=== PATIENT | female | born 1980 | race Caucasian/White ===

== ENCOUNTER → 2017-10-26 09:22 | Outpatient (CLI) | payer OTHER, SELFPAY ==
[2017-10-26 11:45] LABS: Cholesterol 193 mg/dL (200); Glucose 79 mg/dL (74-106); High Density Lipoprotein 54 mg/dL; Triglycerides 174 mg/dL; Very Low Density Lipoprotein 35 mg/dL (5-40)
== END ==
PROVIDERS: Family Provider Family Medicine; PCP Family Medicine; Visit Provider Family Medicine
DX: Z13.1 Encounter for screening for diabetes mellitus (principal); Z13.220 Encounter for screening for lipoid disorders
CPT/HCPCS: 36415; 80061; 82947

== ENCOUNTER → 2018-10-15 16:25 | Outpatient (CLI) | payer OTHER, SELFPAY ==
[2018-10-15 17:35] LABS: Absolute Lymphocyte Count 1.88 X10^3/ul (0.83-4.51); Absolute Neutrophil Count 3.4 X10^3/uL (2.0-7.7); Basophil# 0.03 X10^3/uL; Basophil% 0.5 % (0-1); Eosinophil# 0.17 X10^3/uL; Eosinophils% 2.9 % (0-5); Hematocrit 39.8 % (37-47); Hemoglobin 12.7 g/dl (12.0-15.0); Lymphocyte # 1.88 X10^3/ul (4.0); Lymphocyte % 31.8 % (19-41); Mean Corp Hgb Conc 31.9 g/gl (32-36); Mean Corpuscular Hgb 26.4 pg (27.0-32.0); Mean Corpuscular Volume 82.7 fL (81-99); Monocyte# 0.39 X10^3/uL; Monocyte% 6.6 % (0-10); Neutrophil # 3.43 X10^3/uL (2.7-7.7); POSITIVE COUNT NO; POSITIVE DIFFERENTIAL NO; POSITIVE MORPHOLOGY NO; Platelet Count 271 K/mm3 (150-450); RBC Distribution Width CV 13.4 % (11.6-14.6); Red Blood Count 4.81 M/mm3 (4.2-5.4); White Blood Count 5.9 K/mm3 (4.4-11.0)
[2018-10-15 17:41] LABS: AST(SGOT) 11 U/L (15-37); Alanine Aminotransfer ALT/SGPT 19 U/L (13-56); Albumin, Serum 3.5 g/dL (3.2-5.0); Alkaline Phosphatase 75 U/L (45-117); Anion Gap 9 (5-15); BUN 9 mg/dL (7-18); BUN/Creat Ratio 12.3 RATIO (10-20); Calcium,Total 8.5 mg/dL (8.5-10.1); Chloride 106 mmol/L (98-107); Creatinine, Serum 0.73 mg/dL (0.55-1.02); EST Glomerular Filtration Rate 93 mL/min (>60); Est Glom Filt Rate - Afr Amer 113 mL/min (>60); Globulin 3.6 g/dL (2.2-4.2); Glucose 89 mg/dL (74-106); Magnesium 2.3 mg/dL (1.6-2.6); Potassium 4.2 mmol/L (3.5-5.1); Protein, Total 7.1 g/dL (6.4-8.2); Sodium Level 140 mmol/L (136-145); T4 Free Direct 1.08 ng/dL (0.76-1.46); Thyroid Stim Hormone (TSH) 2.18 uIU/mL (0.358-3.74)
== END ==
PROVIDERS: Family Provider Family Medicine; PCP Family Medicine; Visit Provider Family Medicine
DX: R55 Syncope and collapse (principal); F41.9 Anxiety disorder, unspecified; R00.2 Palpitations
CPT/HCPCS: 36415; 80053; 83735; 84439; 84443; 85025

== ENCOUNTER → 2020-09-30 | Outpatient (CLI) | payer OTHER, SELFPAY | END | disposition home or self-care (01) | LOC: LABSPEC 14:08 | PROVIDERS: PCP Family Medicine; Visit Provider Family Medicine | DX: Z20.828 Contact with and (suspected) exposure to other viral communicable diseases (principal); J34.89 Other specified disorders of nose and nasal sinuses | CPT/HCPCS: 87635; U0005; U0003 ==

== ENCOUNTER → 2021-03-26 11:08 | Outpatient (CLI) | payer OTHER, SELFPAY ==
--- NOTE | 2021-03-26 11:15 | RAD_ITS ---
INDICATION: CHEST/UPPER BACK PAIN EXAMINATION/TECHNIQUE: X-RAY - XR Chest 2 Views COMPARISON: None. FINDINGS: LINES/DEVICES: None. LUNGS: No consolidation, edema or effusion. No pneumothorax. MEDIASTINUM AND CARDIOVASCULAR STRUCTURES: Cardiac silhouette not enlarged. Central airways and mediastinal contour are unremarkable. BONES AND SOFT TISSUES: Unremarkable. RAD/Chest PA and Lateral IMPRESSION: No radiographic evidence of acute cardiopulmonary disease. Electronically Signed: Yefri Curran DO at 20:39 EDT Tel , Service support ,
== END ==
PROVIDERS: PCP Family Medicine; Referring Provider Family Medicine; Visit Provider Family Medicine
DX: M54.6 Pain in thoracic spine (principal); R10.9 Unspecified abdominal pain
CPT/HCPCS: 71046

== ENCOUNTER 2022-05-26 01:04 | Emergency (ER) | payer OTHER, SELFPAY ==
[2022-05-26 01:05] VITALS: BP 174/111; PULSE 125; RESP 19; TEMP 36.3; O2SAT 100; BMI 38.0
--- NOTE | 2022-05-26 01:10 | EKG12_ITS ---
Test Reason : DYSRHYTHMIA Blood Pressure : / mmHG Vent. Rate : 105 BPM Atrial Rate : 105 BPM P-R Int : 154 ms QRS Dur : 074 ms QT Int : 360 ms P-R-T Axes : 051 060 040 degrees QTc Int : 475 ms Sinus tachycardia Low voltage QRS Borderline ECG Confirmed by KAITLIN NARVAEZ, MARY ([id number]), rewrite editor SIN RUSSO ([id number]) on 05/30/2022 9:46:17 A M Referred By: ESSENCE Confirmed By:ISRAEL MADRIGAL MD
[2022-05-26] MEDS: 0.9% Normal Saline 1,000 ML 999 ML IV (01:29)
[2022-05-26 01:32] LABS: Absolute Lymphocyte Count 2.32 X10^3/uL (0.83-4.51); Absolute Neutrophil Count 4.7 X10^3/uL (2.0-7.7); Basophil# 0.04 X10^3/uL; Basophil% 0.5 % (0-1); Eosinophil# 0.02 X10^3/uL; Eosinophils% 0.3 % (0-5); Hematocrit 39.8 % (37-47); Hemoglobin 12.9 g/dL (12.0-15.0); Lymphocyte # 2.32 X10^3/ul (0.83-4.51); Mean Corp Hgb Conc 32.4 g/dL (32-36); Mean Corpuscular Hgb 26.1 pg (27.0-32.0); Mean Corpuscular Volume 80.4 fL (81-99); Mean Platelet Vol. 11.2 fl (6.2-12.0); Monocyte% 7.8 % (0-10); NRBC Flagged by Analyzer 0 % (0-5); Neutrophil # 4.74 X10^3/uL (2.7-7.7); Neutrophil % 61.1 % (47-70); Platelet Count 276 K/mm3 (150-450); RBC Distribution Width CV 13.5 % (11.6-14.6); RBC Distribution Width SD 39.2 fl (35.1-43.9); Red Blood Count 4.95 M/mm3 (4.2-5.4); White Blood Count 7.7 K/mm3 (4.4-11.0)
[2022-05-26 01:55] LABS: Anion Gap 6 (5-15); BUN 11 mg/dL (7-18); BUN/Creat Ratio 11.9 RATIO (10-20); Calcium,Total 9.1 mg/dL (8.5-10.1); Chloride 110 mmol/L (98-107); Creatinine, Serum 0.92 mg/dL (0.55-1.02); EST Glomerular Filtration Rate 70 mL/min (>60); Est Glom Filt Rate - Afr Amer 85 mL/min (>60); Estimated Creatinine Clearance 73.05 ml/min; Glucose 113 mg/dL (74-106); Magnesium 2.2 mg/dL (1.6-2.6); Potassium 3.7 mmol/L (3.5-5.1); Sodium Level 140 mmol/L (136-145); Thyroid Stim Hormone (TSH) 4.22 uIU/mL (0.358-3.74); Troponin-I HS 3 pg/mL (3.0-54.0)
--- NOTE | 2022-05-26 01:58 | EX.ED.DYSGE1 ---
HPI History of Present Illness Chief Complaint: Palpitations Narrative Narrative: Patient is a 42-year-old female with past medical history of acid reflux as well as anxiety. She states that this evening she was just lying in bed when she began to feel like her heart was racing. She denies any previous history of cardiac dysrhythmia. She denies any illicit drug use or excessive stimulant use. She denies any recent surgery travel or history of DVT/PE. She states that the fast heart rate was persisting and she was concerned that this could be related to a possible heart attack and secondary to this comes in for evaluation. [facility] Medical History GERD (gastroesophageal reflux disease) Panic Home Medications bupropion HCl 150 mg 24 hr tablet, extended release 150 mg PO DAILY 05/26/22 [History Last Taken Unknown] bupropion HCl 300 mg 24 hr tablet, extended release 300 mg PO DAILY 05/26/22 [History Last Taken Unknown] pantoprazole 40 mg tablet,delayed release 40 mg PO DAILY 05/26/22 [History Last Taken Unknown] Allergy/AdvReac Type Severity Reaction Status Date / Time omeprazole [From Prilosec] Allergy Rash Verified 05/26/22 01:07 Social History Smoking Status: Former smoker [facility] ED Constitutional Constitutional ED: Denies chills or fever(s) ENT ENT ED: Denies sore throat Cardiovascular Cardiovascular: Reports palpitations and racing heartbeat; Denies chest pain Respiratory/Chest Respiratory/Chest: Denies cough or dyspnea Gastrointestinal Gastrointestinal: Denies abdominal pain, diarrhea, nausea or vomiting Genitourinary Genitourinary ED: Denies dysuria Musculoskeletal Musculoskeletal: Denies back pain or myalgias Integumentary Denies rash Neurologic Neurologic: Denies headache(s) Psychiatric Psychiatric: Reports anxiety Hematologic/Lymphatic Hematologic/Lymphatic: Denies easy bleeding or easy bruising EXAM Physical Exam Const Vital Signs: 05/26/22 01:05 Temperature 97.3 F L Temperature Source Oral Pulse Rate 125 H Respiratory Rate 19 H Blood Pressure 174/111 H Blood Pressure Mean 132 Pulse Ox 100 Oxygen Delivery Method Room Air Positive well nourished, well developed and obese General Appearance ED: well developed Nutritional Appearance: obese HEENT Reports dry mucous membranes Mouth ED: Yes dry mucous membranes Mouth: dry mucous membranes Eyes PERRL and EOMs intact bilaterally Neck supple Neck Narrative: Thyroid is without nodule or goiter Chest Wall palpation of chest normal Resp normal respiratory effort and clear to auscultation bilaterally Cardio regular rhythm Rate: tachycardic and other Other Details: Slightly tachycardic rate with regular rhythm. Radial pulses are plus 2 out of 4 bilaterally are equal and symmetric GI normal to inspection, nondistended, normoactive bowel sounds, non-tender and non-distended GI Narrative: No voluntary guarding or rigidity no pulsatile mass Auscultation: normoactive bowel sounds Palpation: soft Extremity normal to inspection Extremity Narrative: No asymmetric edema no pitting edema negative Homans' sign bilaterally Neuro oriented x3 and CN's II-XII intact bilaterally Sensorium / Orientation: alert Psych Psych Narrative: Patient has a nervous/anxious affect Skin no rashes or lesions noted MDM MDM MDM Narrative Medical decision making narrative: Patient presented to the ER mildly hypertensive and tachycardic. She reported palpitations at home so an EKG was obtained which technically shows sinus tachycardia but no ectopic beats or dysrhythmia. Because of her complaint of palpitations a basic cardiac work-up was obtained. Labs showed no clinically significant findings and her troponin was normal at 3. She was kept on the cafeteria monitor and there was no cardiac dysrhythmia noted. Patient was hydrated and her symptoms improved. Therefore at this time with resolution of her palpitations and work-up showing no ectopy or cardiac dysrhythmia or signs of cardiac event she is otherwise safe for discharge Lab Data Attestation: I reviewed the patient's lab results. Labs: Laboratory Results - last 24 hr 05/26/22 05/26/22 01:20 01:20 WBC 7.7 RBC 4.95 Hgb 12.9 Hct 39.8 MCV 80.4 L MCH 26.1 L MCHC 32.4 RDW Std Deviation 39.2 RDW Coeff of Aracely 13.5 Plt Count 276 MPV 11.2 Immature Gran % (Auto) 0.300 Neut % (Auto) 61.1 Lymph % (Auto) 30.0 [place]irie % (Auto) 7.8 Eos % (Auto) 0.3 Baso % (Auto) 0.5 Absolute Neuts (auto) 4.7 Absolute Lymphs (auto) 2.32 Nucleated RBC % 0 Sodium 140 Potassium 3.7 Chloride 110 H Carbon Dioxide 24.0 Anion Gap 6 BUN 11 Creatinine 0.92 Estim Creat Clear Calc 73.05 Est GFR (MDRD) Af Amer 85 Est GFR (MDRD) Non-Af 70 BUN/Creatinine Ratio 11.9 Glucose 113 H Calcium 9.1 Magnesium 2.2 Troponin I High Sens 3 TSH 4.22 H Discharge Plan Triage Chief Complaint: Palpitations ED Provider: Nahum Mark Dx/Rx/DC Orders Clinical Impression: Palpitations, Anxiety Instructions: ED Palpitations Prescriptions: No Action pantoprazole 40 mg tablet,delayed release (DR/EC) 40 mg PO DAILY bupropion HCl 300 mg tablet extended release 24 hr 300 mg PO DAILY bupropion HCl 150 mg tablet extended release 24 hr 150 mg PO DAILY Primary Care Provider: Kaden Carter Referrals: Kaden Carter MD [Primary Care Provider] - Disposition Disposition: Home, Self Care
[2022-05-26 02:43] VITALS: BP 132/71; PULSE 78; RESP 18; O2SAT 100
== END 2022-05-26 03:09 | disposition home or self-care (01) ==
PROVIDERS: Emergency Provider Emergency Medicine; PCP Family Medicine; Visit Provider Emergency Medicine
DX: R00.2 Palpitations (principal); F41.9 Anxiety disorder, unspecified; E66.9 Obesity, unspecified; Z87.891 Personal history of nicotine dependence; Z79.899 Other long term (current) drug therapy
CPT/HCPCS: 80048; 83735; 84443; 84484; 85025; 93005; 96360; 99285; J7030; A4216

== ENCOUNTER → 2022-08-03 | Outpatient (CLI) | payer OTHER, SELFPAY ==
[2022-08-03 18:44] LABS: Free T3 2.8 pg/mL (2.18-3.98); T4 Free Direct 1.17 ng/dL (0.76-1.46); Thyroid Stim Hormone (TSH) 1.69 uIU/mL (0.358-3.74)
[2022-08-05 21:07] LABS: Thyroid Peroxidase AB 10 IU/mL (0-34)
[2022-08-06 20:14] LABS: Thyroglobulin Antibody < 1.0 IU/mL (0.0-0.9)
== END | disposition home or self-care (01) ==
LOC: MTLAB 16:05
PROVIDERS: PCP Family Medicine; Referring Provider Family Medicine; Visit Provider Family Medicine
DX: E03.9 Hypothyroidism, unspecified (principal)
CPT/HCPCS: 36415; 84439; 84443; 84481; 86376; 86800

== ENCOUNTER → 2022-12-29 | Outpatient (CLI) | payer OTHER, SELFPAY ==
[2022-12-29 18:27] LABS: Absolute Lymphocyte Count 1.58 X10^3/uL (0.83-4.51); Absolute Neutrophil Count 3.1 X10^3/uL (2.0-7.7); Basophil# 0.03 X10^3/uL; Basophil% 0.6 % (0-1); Eosinophil# 0.04 X10^3/uL; Eosinophils% 0.8 % (0-5); Hematocrit 38.1 % (37-47); Lymphocyte # 1.58 X10^3/ul (0.83-4.51); Lymphocyte % 30.7 % (19-41); Mean Corp Hgb Conc 31.5 g/dL (32-36); Mean Corpuscular Hgb 24.9 pg (27.0-32.0); Monocyte# 0.39 X10^3/uL; Monocyte% 7.6 % (0-10); NRBC Flagged by Analyzer 0 % (0-5); Neutrophil # 3.09 X10^3/uL (2.7-7.7); Neutrophil % 60.1 % (47-70); Platelet Count 312 K/mm3 (150-450); RBC Distribution Width SD 40.2 fl (35.1-43.9); Red Blood Count 4.82 M/mm3 (4.2-5.4); White Blood Count 5.1 K/mm3 (4.4-11.0)
[2022-12-29 18:56] LABS: Vitamin B12 269 pg/mL (211-911)
== END | disposition home or self-care (01) ==
LOC: BFHLAB 16:10
PROVIDERS: PCP Family Medicine; Referring Provider Family Medicine; Visit Provider Family Medicine
DX: R07.9 Chest pain, unspecified (principal)
CPT/HCPCS: 36415; 82607; 85025

== ENCOUNTER → 2023-01-23 | Outpatient (CLI) | payer OTHER, SELFPAY ==
--- NOTE | 2023-01-23 09:59 | STE_ITS ---
Reason For Study: CHEST PAIN, FATIGUE, BP ELEVATED Stress Results Protocol: Carmelo Protocol Maximum Predicted HR: 176 bpm Target HR: 150 bpm % Maximum Predicted HR: 96 % DurationHeart Rate Stage (mm:ss) (bpm) BP Comment BASELINE 81 139/86 STAGE 1 3:00 142 164/80 STAGE 2 3:00 169 192/70SOB NOTED STAGE 3 2:00 160 194/70INCREASED SOB RECOVERY 110 148/88COUGHING SPELL NOTED Stress Duration: 8:00 mm:ss Maximum Stress HR: 169 bpm Baseline Echocardiogram Findings The estimated ejection fraction is 60 %. Post exercise EF is 70%. Stress Echo Wall motion Data Resting WM Intermediate WM Stress WM Resting Wall Motion Wall Motion Stress No regional wall motion No regional wall motion abnormalities noted. abnormalities noted. EKG Data No significant ischemic changes. Symptoms with Stress The patient experinced no chest pain . ECHO/Stress Test Echo w/o Contrast Interpretation Summary The estimated ejection fraction is 60 %. Exercise echocardiogram is negative for exercise-induced chest pain or EKG or e chocardiographic changes of ischemia. Functional capacity is normal for age Ordering Physician: Nathalie Theodore Referring Physician: Nathalie Theodore Performed By: Jennifer Rothman RCS
== END | disposition home or self-care (01) ==
PROVIDERS: PCP Family Medicine; Referring Provider Family Medicine; Visit Provider Family Medicine
DX: R07.9 Chest pain, unspecified (principal)
CPT/HCPCS: 93017; 93350

== ENCOUNTER 2023-04-28 08:02 | Day surgery (SDC) | payer OTHER, SELFPAY ==
[2023-04-28 08:29] LABS: Internal QC Validated? YES +Cl - CLEAR BKGD; Pregnancy, Urine Negative Negative; Record Kit Lot#,Urine Preg HCG0000667200
[2023-04-28] MEDS: Lactated Ringers 1,000 ML 15 ML IV (08:30)
[2023-04-28 08:31] VITALS: BP 148/94; PULSE 96; RESP 17; TEMP 36.6; O2SAT 100; BMI 39.2
--- NOTE | 2023-04-28 08:51 | H&P.OPEN ---
HPI - General HPI Narrative BOSTON NETTLES, is a 43 F who presents for screening colonoscopy. The patient is never had screening colonoscopy in the past. She denies any abdominal pain or blood in the stool. She has no family history of colon cancer. [facility] Medical History Alcohol use Anemia Back pain Depression Former smoker Gastric reflux GERD (gastroesophageal reflux disease) History of edema History of IBS Normal stress echocardiogram Panic Shortness of breath on exertion Syncope Wears glasses Home Medications bupropion HCl 150 mg 24 hr tablet, extended release 150 mg PO DAILY 05/26/22 [History Last Taken Unknown] bupropion HCl 300 mg 24 hr tablet, extended release 300 mg PO DAILY 05/26/22 [History Last Taken Unknown] pantoprazole 40 mg tablet,delayed release 40 mg PO DAILY 05/26/22 [History Last Taken Unknown] fexofenadine 60 mg tablet (Yolanda Allergy) 60 mg PO DAILY 03/27/23 [History Last Taken Unknown] multivitamin 1 tab PO DAILY 04/25/23 [History Last Taken Unknown] Allergy/AdvReac Type Severity Reaction Status Date / Time omeprazole [From Prilosec] Allergy Rash Verified 04/28/23 08:09 Surgical History History of laparoscopic cholecystectomy Hx of dilation and curettage Social History household members: spouse current occupational status: employed Smoking Status: Former smoker Past Medical/Surgical History Planned Operation Planned Operative Procedure/s: COLONOSCOPY-OA Previous Hospitalizations/Surgeries HX Hospitalizations: No Any Problems With Anesthesia: Yes (HARD TIME WAKING) You/Your Family Experience Fever (Hyperthermia) With Anes: No Cholinesterase deficiency: No Cardiovascular Hx Chest Pain within Last 2 months: No Hx of Irregular Heartbeat and/or Afib: No Hx Heart Attack: No Hx Congestive Heart Failure: No Hx Hypertension: No Hx Pacemaker: No Respiratory Hx Chronic Obstructive Pulmonary Disease (COPD): No Hx Asthma: No Hx Emphysema: No Hx Sleep Apnea: No Hx Respiratory Tract Infection/Cold (presently): No Do You Snore Loudly (louder than talking or can be heard): No Do You Often Feel Tired/ Fatigued/ Sleepy Dring Daytime?: No Has Anyone Observed You Stop Breathing During Sleep?: No Result (for STOP score): Negative Smoking Status: Former smoker Gastrointestinal Hx Gastroesophageal Reflux: Yes Controlled With Meds: Yes Hx Ulcer: No Neurological Hx Seizures: No Hx Multiple Sclerosis: No Hx Parkinson's Disease: No Hx Head/Neck Injury: No Hx Headaches: No Hx Back Injury/Pain: Yes Does patient have nerve stimulator: No Blood Disorder Hx Anemia: No Reproduction : No Genitourinary Hx Dialysis: No Musculoskeletal Hx Arthritis: No Hx Rheumatoid Arthritis: No Endocrine Hx Diabetes: No Thyroid Disease: No Psycho/Social Hx Anxiety: Yes Hx Depression: Yes Miscellaneous Hx Cancer: No Recent Exposure to Contagious Disease: No Allergies omeprazole [From Prilosec] Allergy (Verified 04/28/23 08:09) Rash Discharge Is Pt Admitted From a Alf, or a Long Term: No After D/C, Where Do you Plan to Go: Return Home Vital Signs Vital Signs Vital Signs: 04/28/23 08:31 04/28/23 08:31 Temperature 97.8 F Temperature Source Temporal Pulse Rate 96 Respiratory Rate 17 Respiratory Pattern Normal Blood Pressure 148/94 H Blood Pressure Mean 112 Blood Pressure Source Monitor Blood Pressure Position Semi-Fowlers Blood Pressure Location Left Arm Pulse Ox 100 Oxygen Delivery Method Room Air Weight Weight: 243 lb 6.245 oz Body Mass Index (BMI) 39.2 Physical Exam Const alert and oriented x3 HEENT normocephalic Eyes PERRL Resp normal respiratory effort and normal air movement Cardio regular rate and regular rhythm GI soft to palpation, non-tender and non-distended Extremity normal to inspection Assessment & Plan Assessment/Plan (1) Encounter for screening for malignant neoplasm of colon: PLAN: I explained endoscopy in detail to the patient. I explained the risks including but not limited to stroke or heart attack with anesthesia, perforation of the GI tract, bleeding, infection. I explained that any of these could necessitate further emergency surgery. The patient understands and all questions were answered sufficiently. The patient wishes to proceed with procedure. Omar Nunez MD Pager: [facility] [address] [place] [address], [address] [place] [address] Office: Surgery Risks - Colonoscopy Risks Include but are not Limited To: Risks include but are not limited to: Bleeding, perforation requiring further surgery, inability to complete colonoscopy requiring barium enema.
[2023-04-28 09:23] VITALS: BP 119/83; BP 148/94; PULSE 72; RESP 18; TEMP 36.2; O2SAT 93
[2023-04-28 09:25] VITALS: BP 113/75; BP 148/94; PULSE 58; RESP 18; O2SAT 99
--- NOTE | 2023-04-28 09:26 | OP.COLON_ITS ---
Patient Name: Cele Paz Procedure Date: 04/28/2023 8:55 AM Date of : 1980 Age: 43 Procedure: Colonoscopy Indications: Screening for colorectal malignant neoplasm Providers: Omar Nunez MD Referring MD: Nathalie Theodore Medicines: Monitored Anesthesia Care Patient Profile: This is a 43 year old female. Refer to note in patient chart for documentation of history and physical. Last Colonoscopy: none. The patient's first colonoscopy is today. Complications: No immediate complications. Procedure: Pre-Anesthesia Assessment: - Prior to the procedure, a History and Physical was performed, and patient medications and allergies were reviewed. The patient's tolerance of previous anesthesia was also reviewed. The risks and benefits of the procedure and the sedation options and risks were discussed with the patient. All questions were answered, and informed consent was obtained. Prior Anticoagulants: The patient has taken no anticoagulant or antiplatelet agents. ASA Grade Assessment: II - A patient with mild systemic disease. After reviewing the risks and benefits, the patient was deemed in satisfactory condition to undergo the procedure. After I obtained informed consent, the scope was passed under direct vision. Throughout the procedure, the patient's blood pressure, pulse, and oxygen saturations were monitored continuously. The Colonoscope was introduced through the anus and advanced to the cecum, identified by appendiceal orifice and ileocecal valve. The colonoscopy was performed without difficulty. The patient tolerated the procedure well. The quality of the bowel preparation was good. The ileocecal valve, appendiceal orifice, and rectum were photographed. Scope In: 9:03:10 AM Scope Withdrawal Time 0 hours 6 minutes 0 seconds Scope Out: 9:17:45 AM Total Procedure Duration Time 0 hours 14 minutes 35 seconds Findings: The entire examined colon appeared normal on direct and retroflexion views. Impression: - The entire examined colon is normal on direct and retroflexion views. - No specimens collected. Recommendation: - Discharge patient to home. - Resume previous diet. - Continue present medications. - Repeat colonoscopy in 10 years for screening purposes. Procedure Code(s): --- Professional --- 20077, Colonoscopy, flexible; diagnostic, including collection of specimen(s) by brushing or washing, when performed (separate procedure) Diagnosis Code(s): --- Professional --- Z12.11, Encounter for screening for malignant neoplasm of colon CPT copyright 2021 [employer]. All rights reserved. The codes documented in this report are preliminary and upon corporate concierge review may be revised to meet current compliance requirements. Omar Nunez MD 04/28/2023 9:25:36 AM This report has been signed electronically. Number of Addenda: 0 Note Initiated On: 04/28/2023 8:55 AM
--- NOTE | 2023-04-28 09:26 | OP.CCLET_ITS ---
04/28/2023 Nathalie Theodore [facility] [address] [place] [address] Re : Colonoscopy procedure for Cele Paz Dear Dr. Theodore This procedure was performed on Friday, April 28, 2023. My impressions and recommendations are as follows: Impressions : - The entire examined colon is normal on direct and retroflexion views. - No specimens collected. Recommendations : - Discharge patient to home. - Resume previous diet. - Continue present medications. - Repeat colonoscopy in 10 years for screening purposes. My findings are described in the full procedure note, which is enclosed. If I can be of further assistance, please feel free to contact me at Doctor phone number(s): , Work: . Sincerely, Omar Nunez MD 04/28/2023 9:25:36 AM This report has been signed electronically.
[2023-04-28 09:30] VITALS: BP 116/78; BP 148/94; PULSE 62; RESP 18; O2SAT 58
[2023-04-28 09:36] VITALS: BP 122/82; BP 148/94; PULSE 71; RESP 18; TEMP 36.2; O2SAT 100
[2023-04-28 09:48] VITALS: BP 148/94
== END 2023-04-28 10:09 | disposition home or self-care (01) ==
LOC: EN 08:06 → AC 08:08
PROVIDERS: Anesthesiology; PCP Family Medicine; Referring Provider Family Medicine; Visit Provider Surgery
PROC: 0DJD8ZZ Inspection of Lower Intestinal Tract, Via Natural or Artificial Opening Endoscopic (ICD-10-PCS; CPT 45378; principal; 2023-04-28 08:55)
DX: Z12.11 Encounter for screening for malignant neoplasm of colon (principal); Z87.891 Personal history of nicotine dependence; Z79.899 Other long term (current) drug therapy
CPT/HCPCS: 45378; 81025; J7120; J2405

== ENCOUNTER → 2023-05-18 | Outpatient (CLI) | payer OTHER, SELFPAY ==
[2023-05-18 17:47] LABS: Absolute Lymphocyte Count 1.73 X10^3/uL (0.83-4.51); Basophil# 0.04 X10^3/uL; Basophil% 0.6 % (0-1); Eosinophil# 0.07 X10^3/uL; Eosinophils% 1.1 % (0-5); Hematocrit 41.7 % (37-47); Hemoglobin 13.1 g/dL (12.0-15.0); Lymphocyte # 1.73 X10^3/ul (0.83-4.51); Lymphocyte % 26.6 % (19-41); Mean Corp Hgb Conc 31.4 g/dL (32-36); Mean Corpuscular Hgb 26.6 pg (27.0-32.0); Mean Corpuscular Volume 84.6 fL (81-99); Monocyte# 0.63 X10^3/uL; Monocyte% 9.7 % (0-10); NRBC Flagged by Analyzer 0 % (0-5); Neutrophil # 4.02 X10^3/uL (2.7-7.7); Neutrophil % 61.7 % (47-70); Platelet Count 270 K/mm3 (150-450); RBC Distribution Width CV 13.9 % (11.6-14.6); RBC Distribution Width SD 42.9 fl (35.1-43.9); Red Blood Count 4.93 M/mm3 (4.2-5.4); White Blood Count 6.5 K/mm3 (4.4-11.0)
[2023-05-18 18:12] LABS: Vitamin B12 398 pg/mL (211-911)
[2023-05-18 18:24] LABS: Ferritin 19 ng/mL (8-252)
== END | disposition home or self-care (01) ==
LOC: MTLAB 16:47
PROVIDERS: PCP Family Medicine; Referring Provider Family Medicine; Visit Provider Family Medicine
DX: D64.9 Anemia, unspecified (principal); E53.8 Deficiency of other specified B group vitamins
CPT/HCPCS: 36415; 82607; 82728; 85025

== ENCOUNTER → 2023-06-23 | Outpatient (CLI) | payer OTHER, SELFPAY ==
--- NOTE | 2023-06-23 08:17 | RAD_ITS ---
STUDY: AIR CONTRAST ESOPHAGRAM AND UPPER GI SERIES REASON FOR EXAM: Female, 43 years old. EPIGASTRIC PAIN FLUOROSCOPY TIME (if supplied): (1 minute and 16 seconds) minutes/seconds. 24 images were obtained. TECHNIQUE: SINGLE CONTRAST AND AIR CONTRAST FLUOROSCOPIC IMAGES. COMPARISON: None. FINDINGS: The cervical esophagus demonstrates normal motility without aspiration. There is no stricture or extrinsic mass effect. No intraluminal polypoid mass is identified. The thoracic esophagus distends well without stricture or mucosal fold thickening. No mucosal ulcerations are identified. There is no extrinsic mass effect. There are no diverticula. No hiatal hernia or gastroesophageal reflux was identified. The patient ingested a 12 mm tablet and barium without difficulty. The stomach distends well without mucosal fold thickening or mucosal ulceration. There is no intraluminal mass. The duodenal bulb is freely distensible without deformity or ulceration. The duodenal sweep is normal in position and caliber. RAD/Upper GI w/BA Swallow IMPRESSION: Normal air-contrast upper GI series. Electronically Signed: Ernie Sosa MD at 14:50 EST ,
== END | disposition home or self-care (01) ==
PROVIDERS: PCP Family Medicine; Referring Provider Family Medicine; Visit Provider Family Medicine
DX: R10.13 Epigastric pain (principal)
CPT/HCPCS: 74246

== ENCOUNTER 2023-09-10 10:20 | Emergency (ER) | payer OTHER, SELFPAY ==
[2023-09-10 10:21] VITALS: BP 158/98; PULSE 88; RESP 18; TEMP 36.2; O2SAT 100; BMI 40.4
--- NOTE | 2023-09-10 10:32 | VDLE_ITS ---
Reason For Study: LLE Pain RIGHT LEFT CFV is compressible, spontaneous, phasic, GSV is normal. competent and demonstrates normal CFV is compressible, spontaneous, phasic, augmentation. competent, and demonstrates normal Procedure augmentation. This is a venous duplex using B-mode, color FV is compressible, spontaneous, phasic, flow and spectral Doppler. competent and demonstrates normal Exam performed portable in ED. augmentation. The exam was diagnostic. POP V is compressible, spontaneous, phasic, A preliminary report was called and/or faxed competent and demonstrates normal to ED RN Kelli. augmentation. T/P Trunk is compressible. PTV is compressible. LT PerV is compressible. VL/Venous Duplex US, Unilateral Interpretation Summary There is no evidence of left lower extremity deep vein thrombosis. Left great s aphenous vein appears patent and compressible segmentally. Normal flow patterns right common femoral vein Ordering Physician: Adrian Vanegas Performed By: Farhad Burton RVT
--- NOTE | 2023-09-10 10:33 | RAD_ITS ---
EXAM: XR CHEST, 2 VIEWS CLINICAL INDICATION: pain TECHNIQUE: Frontal and lateral views of the chest. COMPARISON: 03/26/2021. FINDINGS: LUNGS AND PLEURAL SPACES: Unremarkable. No consolidation or edema. No pneumothorax. No effusion. HEART: Unremarkable. Cardiac silhouette not enlarged. MEDIASTINUM: Central airways and mediastinal contour are unremarkable. BONES/JOINTS: Unremarkable. No acute fracture. SOFT TISSUES: Unremarkable. RAD/Chest PA and Lateral IMPRESSION: No radiographic evidence of acute cardiopulmonary disease and no significant interval change when compared to 03/26/2021. Electronically Signed: Ayo Dickey MD at 12:25 EST ,
--- NOTE | 2023-09-10 10:34 | EDS_ITS ---
HPI History of Present Illness Chief Complaint: Lower Extremity Injury Informant: patient Narrative Narrative: Patient presents with some left leg pain. Patient states that yesterday she had some discomfort behind her left knee. No known injury. That is gone today. But now she has a sore spot in the distal medial left thigh. She states sometimes she feels may be a bump in the area. Again no injury. She has never had this before. No numbness tingling weakness or back pain. No bowel or bladder dysfunction. No fevers or chills. On review of systems I do find out that she has had some episodes which she describes as collarbone plain and chest pain off and on for some months. She evidently had some outpatient health screening with some blood work a possible EKG and they also did ultrasounds of her neck and abdomen that showed normal vascular stru ctures. Patient has no travel surgery immobilization personal or family history of DVT or PE. No recent splinting. No hormonal therapy. She had a father that had an SD at about 57 or 58. She is not diabetic hypertensive or smoker (she quit long ago). She does have some obesity. [facility] Medical History Alcohol use Anemia Back pain Depression Former smoker Gastric reflux GERD (gastroesophageal reflux disease) History of edema History of IBS Normal stress echocardiogram Panic Shortness of breath on exertion Syncope Wears glasses Home Medications bupropion HCl 150 mg 24 hr tablet, extended release 150 mg PO DAILY 05/26/22 [History Last Taken Unknown] bupropion HCl 300 mg 24 hr tablet, extended release 300 mg PO DAILY 05/26/22 [History Last Taken Unknown] pantoprazole 40 mg tablet,delayed release 40 mg PO DAILY 05/26/22 [History Last Taken Unknown] fexofenadine 60 mg tablet (Yolanda Allergy) 60 mg PO DAILY 03/27/23 [History Last Taken Unknown] multivitamin 1 tab PO DAILY 04/25/23 [History Last Taken Unknown] Allergy/AdvReac Type Severity Reaction Status Date / Time omeprazole [From Prilosec] Allergy Rash Verified 09/10/23 10:21 Surgical History History of laparoscopic cholecystectomy Hx of dilation and curettage Social History household members: spouse current occupational status: employed Smoking Status: Former smoker ROS ROS ED ROS Narrative A complete review of systems was performed and is negative except as documented in the history of present illness. Some specific details below. Constitutional: No recent fevers or chills. EYE: No discharge, visual complaints, or pain. ENT: No difficulty swallowing. No swelling. No pain. No reflux symptoms. CV: See history of present illness. No symptoms now or recently. Respiratory: No dyspnea or coughing. GI: No abdominal pain. No nausea vomiting diarrhea. No blood in stool. : No frequency dysuria or hematuria. Musculoskeletal: No recent trauma. See history of present illness. Skin: No rash. Nondiaphoretic. Neuro: No weakness or numbness. Endocrine: No polyuria or polydipsia. EXAM Physical Exam Narrative Exam Narrative: CONSTITUTIONAL: Patient is nontoxic in appearance. The patient looks comfortable. Work of breathing looks normal. HEENT: No notable trauma. Mucous membranes moist. No sinus tenderness. No indication of pain with swallowing. EYES: No conjunctival injection. No proptosis. NECK:No JVD. No stridor. CARDIOVASCULAR: Regular rate. Not tachycardic. Regular rhythm. No notable murmur. No JVD. RESPIRATORY: No respiratory distress. Breathing is unlabored. No wheezes. No rhonchi. No rales. No pain with a deep breath. No chest wall tenderness. Saturations are normal at 100% on room air showing no hypoxia. No tachypnea. GASTROINTESTINAL: Not distended. Bowel sounds are normal. No tenderness. No guarding. No rebound. No palpable mass. No bruit is heard. GENITOURINARY: No tenderness over the bladder. No CVA tenderness. MUSCULOSKELETAL: Atraumatic. No peripheral edema. No cord. She does have a little tenderness at the distal medial thigh and an area that would approximate the femoral artery and vein. But I do not feel a definite lump in this area. There are no skin color changes. Peripheral pulses and color is normal. NEUROLOGICAL: Patient is alert and appropriate. No focal deficit noted. SKIN: No noted rashes. No diaphoresis. PSYCHIATRIC: Patient is calm. Mood is appropriate. Const Vital Signs: 09/10/23 10:21 09/10/23 11:20 Temperature 97.1 F L Temperature Source Temporal Pulse Rate 88 80 Respiratory Rate 18 16 Blood Pressure 158/98 H 156/84 H Blood Pressure Mean 118 108 Pulse Ox 100 99 Oxygen Delivery Method Room Air MDM MDM MDM Narrative Medical decision making narrative: Although patient's primary complaint today is the left leg pain, she does report intermittent chest pain for some months. So this will also be evaluated today as I feel it is part of her complaint. But patient is PERC negative. Patient's CBC is normal including white count hemoglobin and platelets. Patient's electrolytes show no marked abnormalities. Minimal elevation of chloride at 111. Glucose is normal. Patient's troponin is quite low and normal at 3. My independent interpretation of the patient's two-view chest x-ray shows no sign of acute process. No sign of pneumothorax. Cardiac silhouette looks normal. Lung núñez no sign of infiltrate. Ultrasound results were called and is negative. I explained the results to the patient, follow-up and reasons to return. Lab Data Attestation: I reviewed the patient's lab results. Labs: Laboratory Results - last 24 hr 09/10/23 10:50 WBC 5.7 RBC 5.11 Hgb 13.9 Hct 43.2 MCV 84.5 MCH 27.2 MCHC 32.2 RDW Std Deviation 39.3 RDW Coeff of Aracely 12.8 Plt Count 279 MPV 10.4 Immature Gran % (Auto) 0.300 Neut % (Auto) 60.7 Lymph % (Auto) 28.0 Harding % (Auto) 9.1 Eos % (Auto) 1.2 Baso % (Auto) 0.7 Absolute Neuts (auto) 3.5 Absolute Lymphs (auto) 1.60 Nucleated RBC % 0 Sodium 140 Potassium 3.9 Chloride 111 H Carbon Dioxide 26.0 Anion Gap 3 L BUN 7 Creatinine 0.87 Estim Creat Clear Calc 104.50 Est GFR (MDRD) Af Amer 90 Est GFR (MDRD) Non-Af 75 BUN/Creatinine Ratio 8.0 L Glucose 99 Calcium 9.3 Troponin I High Sens 3 EKG Initial EKG: Comments: My independent interpretation of the patient's EKG shows a normal sinus rhythm with rate at 81. No ventricular ectopy but there is some baseline variation and interference. No acute ST elevation or depression. VA interval, QRS duration and QTc are normal. Discharge Plan Triage Chief Complaint: Lower Extremity Injury ED Provider: Adrian Vanegas Dx/Rx/DC Orders Clinical Impression: Left thigh pain, History of chest pain Instructions: ED Pain, Acute, Uncertain Cause Prescriptions: No Action fexofenadine [Yolanda Allergy] 60 mg tablet 60 mg PO DAILY pantoprazole 40 mg tablet,delayed release (DR/EC) 40 mg PO DAILY bupropion HCl 300 mg tablet extended release 24 hr 300 mg PO DAILY bupropion HCl 150 mg tablet extended release 24 hr 150 mg PO DAILY multivitamin Tablet 1 tab PO DAILY Primary Care Provider: Nathalie Theodore Referrals: Nathalie Theodore MD [Primary Care Provider] - 3-5 Days Disposition Disposition: Home, Self Care
--- OUTSIDE RECORDS SUMMARY | 2023-09-10 10:41 | XMS RPT_ITS | CCD ---
Author Name Unknown Address [address] [place] [address] Organization [facility] Care Team Providers Care Middleware Developer Name Role Phone Ewelina NARVAEZ, Nathalie Lira Primary Care Provider MARYANNE BISHOP Referring Unavailable AGAPITO ZAVALA Primary Care Unavailable MARYANNE BISHOP Attending Unavailable AGAPITO ZAVALA Referring Unavailable NATHALIE PARISI Primary Care Unavailable Allergies Allergy Classification Reported Allergen(s) Allergy Type Date of Onset Reaction(s) Facility (3 sources) Esomeprazole; Translations: [ESOMEPRAZOLE MAGNESIUM] Drug Allergy 9 Rash [facility] Work Phone: (3 sources) Omeprazole; Translations: [OMEPRAZOLE] Drug Allergy 5 Hives [facility] Work Phone: (2 sources) environmental [Other] Propensity to adverse reactions 7 [facility] (1 source) OTHER; Translations: [OTHER] Propensity to adverse reactions (disorder) 7 [facility]ository Medications Completed/Discontinued Medications Medication Drug Class(es) Dates Sig (Normalized) Sig (Original) betamethasone 0.5 mg/ml topical cream (2 sources) Corticosteroid Start: 02-09-2021 betamethasone dipropionate (DIPROSONE) 0.05 % cream USE 1 APPLICATION TOPICALLY TO AFFECTED AREA 2 TIMES PER DAY FOR PSORIASIS 0 02/09/2021 Active Problems Active Problems Problem Classification Problem Date Documented Da te Episodic/Chronic Anxiety disorders (2 sources) Panic disorder without agoraphobia; Translations: [Panic disorder [episodic paroxysmal anxiety]] 03-16-2010 Chronic Disorders of lipid metabolism (2 sources) Mixed hyperlipidemia; Translations: [Mixed hyperlipidemia] Onset: 8 03-16-2010 Chronic Esophageal disorders (2 sources) Gastroesophageal reflux disease; Translations: [Gastro-esophageal reflux disease without esophagitis] 03-16-2010 Chronic Menstrual disorders (2 sources) Dysmenorrhea; Translations: [Dysmenorrhea, unspecified] Onset: 0 03-16-2010 Chronic Mood disorders (2 sources) Major depression, single episode; Translations: [Major depressive disorder, single episode, unspecified] 03-16-2010 Chronic Other female genital disorders (1 source) Vaginal discharge; Translations: [Other specified noninflammatory disorders of vagina] Episodic Other female genital disorders (1 source) Other specified noninflammatory disorders of vagina; Translations: [Vaginal discharge] Onset: 3 Episodic Other gastrointestinal disorders (2 sources) Irritable bowel syndrome; Translations: [Irritable bowel syndrome without diarrhea] 03-16-2010 Chronic Other nutritional; endocrine; and metabolic disorders (3 sources) Obesity; Translations: [Obesity, unspecified] Chronic Other nutritional; endocrine; and metabolic disorders (1 source) Obesity, unspecified; Translations: [Obesity, unspecified classification, unspecified obesity type, unspecified whether serious comorbidity present] Onset: 0 Chronic Other screening for suspected conditions (not mental disorders or infectious disease) (4 sources) Patient encounter status; Translations: [Encounter for screening mammogram for malignant neoplasm of breast] Onset: 3 Episodic Past or Other Problems Problem Classification Problem Date Documented Date Episodic/Chronic Contraceptive and procreative management (2 sources) Oral contraception; Translations: [Encounter for surveillance of contraceptive pills] Onset: 02-02-2010 03-16-2010 Episodic Other connective tissue disease (2 sources) Muscle pain; Translations: [Myalgia and myositis, unspecified] Onset: 06-18-2012 06-18-2012 Episodic Spondylosis; intervertebral disc disorders; other back problems (2 sources) Sciatica; Translations: [Sciatica, unspecified side] Onset: 06-18-2012 06-18-2012 Episodic Results Test Name Value Interpretation Reference Range Facil ity Vital Signs Date Time Vital Sign Value Performing Clinician Brandee peña 11-15-2022 09:0400 Body height 167.6 cm Maryanne Bishop APRN.CNP Work Phone: [facility] 11-15-2022 09:03-0400 Body weight 109.77 kg Maryanne Bishop APRN.CNP Work Phone: [facility] 11-15-2022 09:03-0400 Diastolic blood pressure 92 mm[Hg] Maryanne Bishop APRN.CNP Work Phone: [facility] 11-15-2022 09:03-0400 Systolic blood pressure 122 mm[Hg] Maryanne Bishop APRN.CNP Work Phone: [facility] Encounters Encounter Date Encounter Type Care Provider Facility Start: 11-15-2022 End: 11-16-2022 ambulatory MARYANNE BISHOP Facility:[facility] Start: 11-15-2022 Encounter for gynecological examination (general) (routine) with abnormal findings MARYANNE BISHOP [facility] Start: 11-15-2022 End: 11-15-2022 Patient encounter procedure Maryanne Bishop APRN.CNP Work Phone: OB/Gynecology Procedures Date Procedure Procedure Detail Performing Clinician Start: 11-15-2022 Screening mammograph y bi 2-view breast inc cad Maryanne Bishop APRN.CNP Work Phone: Start: 03-26-2021 Mammography Maryanne lira APRN.CNP Work Phone: Start: 03-18-2010 Lipid 1996 panel - S [place] or Plasma Screen Wstr Plan of Treatment Date Care Activity Detail Author Start: 11-04-2032 Urine microalbumin profile DTaP,Tdap,Td Vaccine (4 - Td or Tdap) [facility] Start: 03-20-2025 HPV TESTING HPV TESTING [facility] Start: 03-20-2025 PAP TESTING PAP TESTING [facility] Start: 11-16-2023 Mammography Mammogram Screening [facility] Start: 2023 Cologuard (FIT-DNA) Cologuard (FIT-DNA) [facility] Start: 2023 Colonoscopy Colonoscopy [facility] Start: 2023 Colorectal Cancer Screening Colorectal Cancer Screening [facility] Start: [address] Colonography [facility] Start: 2023 Diabetes Screening Diabetes Screening [facility] Start: 2023 Fecal Occult Blood Fecal Occult Blood [facility] Start: 2023 Lipid 1996 panel - Serum or Plasma Lipid Screening [facility] Start: 2023 Sigmoidoscopy Sigmoidoscopy [facility] Start: 04-14-2023 Covid-19 Vaccine () Covid-19 Vaccine () [facility] Start: 04-14-2023 Influenza vaccination Influenza Vaccine (#1) [facility] Start: 04-02-2022 Urine microalbumin profile DTAP,TDAP,TD (3 - Td or Tdap) [facility] Start: 03-26-2022 Mammography MAMMOGRAM [facility] Start: 1996 HEPATITIS C SCREENING HEPATITIS C SCREENING [facility] Start: 1996 HIV SCREENING HIV SCREENING [facility] Start: 1978 HEPATITIS B (1 of 3 - 3-dose series) HEPATITIS B (1 of 3 - 3-dose series) [facility] Start: 1978 Hepatitis B Vaccine (1 of 3 - 3-dose series) Hepatitis B Vaccine (1 of 3 - 3-dose series) [facility] BACTERIAL VAGINOSIS AMPLIFICATION BACTERIAL VAGINOSIS AMPLIFICATION Lab Routine Vaginal discharge 11/15/2022 9:57 AM EDT [facility] Work Phone: MAREN / TRICHOMONA S AMPLIFICATION MAREN / TRICHOMONAS AMPLIFICATION Microbiology Routine Vaginal discharge 11/15/2022 9:57 AM EDT [facility] Work Phone: End: 12-15-2023 GERRI SCREENING GERRI SCREENING Radiology Routine Encounter for screening mammogram for breast cancer 1 Occurrences starting 11/15/2022 until 12/15/2023 [facility] Work Phone: Immunizations Immunization Date Immunization Notes Care Provider Berta varela 05-17-2022 influenza virus vaccine, unspecified formulation Screen Wstr [facility] 06-23-2012 influenza virus vaccine, unspecified formulation Maryanne Bishop APRN.ASSEMBLY MACHINE OFFBEARER Work Phone: [facility] 04-02-2012 tetanus toxoid, redu jane diphtheria toxoid, and acellular pertussis vaccine, adsorbed Maryanne Bishop APRN.ASSEMBLY MACHINE OFFBEARER Work Phone: [facility] Work Phone: 08-11-2010 influenza virus vaccine, unspecified formulation Maryanne Bishop APRN.ASSEMBLY MACHINE OFFBEARER Work Phone: [facility] Work Phone: 06-26-2008 influenza virus vaccine, unspecified formulation Maryanne Bishop APRN.ASSEMBLY MACHINE OFFBEARER Work Phone: [facility] Work Phone: 07-30-2005 influenza virus vaccine, whole virus Maryanne Bishop APRN.ASSEMBLY MACHINE OFFBEARER Work Phone: [facility] Work Phone: 07-20-2001 diphtheria and tetan us toxoids, adsorbed for pediatric use Maryanne Bishop APRN.ASSEMBLY MACHINE OFFBEARER Work Phone: [facility] Work Phone: Payers Date Payer Category Payer Unknown [id number] 2022 Unknown [id number] Social History Date Type Detail Facility Start: 12-04-2010 [facility] Work Phone: End: 10-12-2000 History of tobacco use Current smoker [facility] Work Phone: End: 10-12-2000 History of tobacco use Cigarette Smoker [facility] Work Phone: Start: 12-04-2010 End: 11-15-2022 Cigarettes smoked current (pack per day) - Reported 0.5 [facility] Start: 12-04-2010 Tobacco use and exposure Smoke less tobacco non-user [facility] Work Phone: Start: 11-15-2022 Alcohol intake Current drinke r of alcohol (finding) [facility] Start: 03-20-2020 Alcohol Comment Rarely [facility] Start: 1980 Sex Assigned At Female [facility] Start: 11-15-2022 Tobacco use panel [facility] National Score (1-10 0), lower number is lower risk 51 [facility] Start: 12-25-2020 Gender identity Identifies as female gender (finding) [facility] Start: 12-25-2020 Sexual orientation Choose not to dis close [facility] Clinical Notes 03-16-2010 to 11-15-2022 Ladonna Espino RT(R) - 11/15/2022 10:10 AM Jayda Bishop APRN.CNP - 11/15/2022 8:59 AM EDT Note Date & Type Note Facility 11-15-2022 Note HNO ID: [id number] Author: RT Addison(R) Service: ? Author Type: Technologist Type: Progress Notes Filed: 11/15/2022 9:50 AM Note Text: Radiology Service Progress Note PATIENT NAME: Cele Nettles DATE OF SERVICE: November 15, 2022 TIME: 9:39 AM PATIENT IDENTITY VERIFICATION COMPLETED USING TWO (2) IDENTIFIERS: Name and Date of confirmed by patient verbally. FALL SCREENING: Has the patient had 2 falls in the last year or 1 fall with injury or currently using an Ambulatory Assistive Device (Walker, Cane, Wheelchair, Crutches, etc.)? No PATIENT GENDER DATA: Female. status: : No status: NO. PATIENT RELEVANT IMPLANT DATA REVIEWED: Not Applicable RADIOLOGY DEPARTMENT: Mammography PERIPHERAL IV DATA: Not applicable SIGNED BY: RT Addison(R) November 15, 2022 9:39 AM [facility] 11-15-2022 Note HNO ID: [id number] Author: Maryanne Bishop APRN.ASSEMBLY MACHINE OFFBEARER Service: ? Author Type: Nurse Practitioner Type: Progress Notes Filed: 11/15/2022 9:42 AM Note Text: Supervisor Pipe Finishing offered: Patient declines. Cele is a 42 year old who presents for an annual gynecologic exam without complaints. Taking the week off of work to take daughter on college visits - would like to work in [employer]. Also has 15 yo child. Menses: cycles every 28-29 days and 5-7 days of flow. Contraception: vasectomy HPV vaccine: No Last Pap: 2019 normal HPV: negative History of abnormal pap: No Last mammogram: 2020 normal Sexually active: Yes Patient concerns for STD exposure: No. Time with current partner: 27 years Pain with intercourse: No Postcoital bleeding: No Documentation from previous visit of 03/23/2021 was copied and pasted, documentation has been reviewed and edited as necessary for today's visit. 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 +/- Panic disorder without agoraphobia early +/- first treated in 2004 +/- PAST SURGICAL HISTORY Procedure Laterality Date DANDC, DIAG AND/OR THERAPEUTIC Dilation AND curettage LAPAROSCOPIC CHOLEYCYSTECTOMY 09/24/2010 Cholecystectomy, lap PAST SURGICAL HISTORY OF 02/22 AND 03/25 moles removed to L arm and back of neck FAMILY HISTORY Problem Relation Age of Onset Heart Mother murmur Hypertension Mother middle age Heart Attack Father 06/2018 No Known Problems Sister No Known Problems Brother No Known Problems Brother Heart Maternal Grandmother of [place] Diabetes Maternal Grandmother Stroke Maternal Grandfather Cancer Paternal Grandmother ADD/ADHD Daughter ADD/ADHD Son Heart Sister murmur Diabetes Sister Type 1 Hypertension Brother younger brother; morbidly obese Heart Brother CHF Hypertension Maternal Aunt Hypertension Maternal Aunt other (Pancreatic CA) Other great grandmother Heart Paternal Grandfather SOCIAL HISTORY Social History Tobacco Use Smoking status: Former Packs/day: 0.50 Years: 6.00 Pack years: 3.00 Types: Cigarettes Quit date: 10/12/2000 Years since quittin.1 Smokeless tobacco: Never Vaping Use Vaping Use: Never used Substance Use Topics Alcohol use: Yes Comment: Rarely Drug use: No REVIEW OF SYSTEMS Abdomen: No abdominal pain, nausea, vomiting, diarrhea, or constipation. No bloating, early satiety, indigestion, or increased flatulence. Bladder: No dysuria, gross hematuria, urinary frequency, urinary urgency, or incontinence. Breast: No breast lumps, nipple d/c, overlying skin changes, redness or skin retraction. Allergies and current medication updated:Yes EXAM: BP 122/92 Ht 5' 6 (1.68m) Wt 242 lb (109.8kg) LMP 10/31/2022 BMI 39.08 kg/(m2). Increase of 18 lbs in past 1.5 years. Sedentary job for past 1.5 years. Does not think diet has changed. GENERAL: pleasant, female in no apparent distress HEENT: Normocephalic, atraumatic, mucus membranes moist, and no lesions NECK: Supple, full range of motion, no adenopathy, and thyroid normal DERMATOLOGY: Normal, without lesions, non-icteric, and non-hirsute BREAST: soft, non-tender, symmetric, no dominant mass, normal nipple-areolar complex, no lymphadenopathy, and no nipple discharge CHEST: Normal inspiratory effort ABDOMEN: soft, no masses, and Mild tenderness in RLQ, LLQ, periumbilical area PELVIC: external genitalia normal, normal Bartholin's glands, urethra, Ronald's glands, no vulvar lesions, no cervical lesions, good vaginal support, small amount pale yellow discharge present, normal appearing perineal body and perianal region BIMANUAL: uterus normal size, shape and consistency, no adnexal masses, and Mild tenderness entire pelvis RECTOVAGINAL: deferred. NEURO: alert and oriented x3,exam grossly non-focal EXTREMITIES: normal ASSESSMENT/PLAN: 1) Health maintenance: Pap/HPV up to date. Mammogram ordered. Nutrition, exercise and routine health maintenance exams reviewed. 2. Vaginal discharge - ICD9: 623.5, ICD10: N89.8 - MAREN / TRICHOMONAS AMPLIFICATION - BACTERIAL VAGINOSIS AMPLIFICATION 3. Obesity, unspecified classification, unspecified obesity type, unspecified whether serious comorbidity present - ICD9: 278.00, ICD10: E66.9 Weight increasing - Discussed weight management, given questionnaire to complete 4) Contraception: vasectomy. Contraceptive (more content not included)... [facility] 11-15-2022 History of Present illness Narrative Radiology Service Progress Note PATIENT NAME: Cele Nettles DATE OF SERVICE: November 15, 2022 TIME: 9:39 AM PATIENT IDENTITY VERIFICATION COMPLETED USING TWO (2) IDENTIFIERS: Name and Date of confirmed by patient verbally. FALL SCREENING: Has the patient had 2 falls in the last year or 1 fall with injury or currently using an Ambulatory Assistive Device (Walker, Cane, Wheelchair, Crutches, etc.)? No PATIENT GENDER DATA: Female. status: : No status: NO. PATIENT RELEVANT IMPLANT DATA REVIEWED: Not Applicable RADIOLOGY DEPARTMENT: Mammography PERIPHERAL IV DATA: Not applicable SIGNED BY: RT Addison(R) November 15, 2022 9:39 AM documented in this encounter [facility] 11-15-2022 History of Present illness Narrative Supervisor Pipe Finishing offered: Patient declines. Cele is a 42 year old who presents for an annual gynecologic exam without complaints. Taking the week off of work to take daughter on college visits - would like to work in [employer]. Also has 15 yo child. Menses: cycles every 28-29 days and 5-7 days of flow. Contraception: vasectomy HPV vaccine: No Last Pap: 2019 normal HPV: negative History of abnormal pap: No Last mammogram: 2020 normal Sexually active: Yes Patient concerns for STD exposure: No. Time with current partner: 27 years Pain with intercourse: No Postcoital bleeding: No Documentation from previous visit of 03/23/2021 was copied and pasted, documentation has been reviewed and edited as necessary for today's visit. 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 +/- Panic disorder without agoraphobia early 's +/- first treated in 2004 +/- PAST SURGICAL HISTORY Procedure Laterality Date D&C, DIAG AND/OR THERAPEUTIC Dilation & curettage LAPAROSCOPIC CHOLEYCYSTECTOMY 09/24/2010 Cholecystectomy, lap PAST SURGICAL HISTORY OF 02/22 & 03/25 moles removed to L arm and back of neck FAMILY HISTORY Problem Relation Age of Onset Heart Mother murmur Hypertension Mother middle age Heart Attack Father 06/2018 No Known Problems Sister No Known Problems Brother No Known Problems Brother Heart Maternal Grandmother of [place] Diabetes Maternal Grandmother Stroke Maternal Grandfather Cancer Paternal Grandmother ADD/ADHD Daughter ADD/ADHD Son Heart Sister murmur Diabetes Sister Type 1 Hypertension Brother younger brother; morbidly obese Heart Brother CHF Hypertension Maternal Aunt Hypertension Maternal Aunt other (Pancreatic CA) Other great grandmother Heart Paternal Grandfather SOCIAL HISTORY Social History Tobacco Use Smoking status: Former Packs/day: 0.50 Years: 6.00 Pack years: 3.00 Types: Cigarettes Quit date: 10/12/2000 Years since quittin.1 Smokeless tobacco: Never Vaping Use Vaping Use: Never used Substance Use Topics Alcohol use: Yes Comment: Rarely Drug use: No REVIEW OF SYSTEMS Abdomen: No abdominal pain, nausea, vomiting, diarrhea, or constipation. No bloating, early satiety, indigestion, or increased flatulence. Bladder: No dysuria, gross hematuria, urinary frequency, urinary urgency, or incontinence. Breast: No breast lumps, nipple d/c, overlying skin changes, redness or skin retraction. Allergies and current medication updated:Yes EXAM: BP 122/92 Ht 5' 6 (1.68m) Wt 242 lb (109.8kg) LMP 10/31/2022 BMI 39.08 kg/(m^2). Increase of 18 lbs in past 1.5 years. Sedentary job for past 1.5 years. Does not think diet has changed. GENERAL: pleasant, female in no apparent distress HEENT: Normocephalic, atraumatic, mucus membranes moist, and no lesions NECK: Supple, full range of motion, no adenopathy, and thyroid normal DERMATOLOGY: Normal, without lesions, non-icteric, and non-hirsute BREAST: soft, non-tender, symmetric, no dominant mass, normal nipple-areolar complex, no lymphadenopathy, and no nipple discharge CHEST: Normal inspiratory effort ABDOMEN: soft, no masses, and Mild tenderness in RLQ, LLQ, periumbilical area PELVIC: external genitalia normal, normal Bartholin's glands, urethra, Ronald's glands, no vulvar lesions, no cervical lesions, good vaginal support, small amount pale yellow discharge present, normal appearing perineal body and perianal region BIMANUAL: uterus normal size, shape and consistency, no adnexal masses, and Mild tenderness entire pelvis RECTOVAGINAL: deferred. NEURO: alert and oriented x3,exam grossly non-focal EXTREMITIES: normal ASSESSMENT/PLAN: 1) Health maintenance: Pap/HPV up to date. Mammogram ordered. Nutrition, exercise and routine health maintenance exams reviewed. 2. Vaginal discharge - ICD9: 623.5, ICD10: N89.8 - MAREN / TRICHOMONAS AMPLIFICATION - BACTERIAL VAGINOSIS AMPLIFICATION 3. Obesity, unspecified classification, unspecified obesity type, unspecified whether serious comorbidity present - ICD9: 278.00, ICD10: E66.9 Weight increasing - Discussed weight management, given questionnaire to complete 4) Contraception: vasectomy. Contraceptive options reviewed and information provided. 5) STD screening: Declined STD check. 6) Follow up one year or sooner as needed Maryanne Bishop APRN.HAO documented in this encounter [facility] documented as of this encounter (statuses as of 11/15/2022) [facility]08-03-2010 History of Past illness Narrative* Problem Noted Date Diagnosed Date Resolved Date Routine general medical exam ination at a health care facility 03/16/2010 04/02/2012 Overview: 01/22/0705/200803/16/2010 Postcoital bleeding 02/02/2010 04/02/20 12 Dyspareunia 02/02/2010 02/22/2011 Routine Gynecological Examination 04/22/2008 04/02/2012 Overview: Dr. Ba documented as of this encounter (statuses as of 06/18/2023) [facility]* Diagnosis Encounter for gynecological examination with abnormal finding- Primary Routine gynecological examination Vaginal discharge Leukorrhea, not specified as infective Obesity, unspecified classification, unspecified obesity type, unspecified whether serious comorbidity present Encounter for screening [facility] for [facility] Encounter for screening mammogram for malignant neoplasm of breast Other screening mammogram documented in this encounter [facility] for referral (narrative)* Diagnostic Procedure Only (Routine) - Pending Review Specialty Diagnoses / Procedures Referred By Lencho long Referred To Contact [facility] Diagnoses Encounter for screening mammogram for breast cancer Procedures GERRI SCREENING SCREENING MAMMOGRAPHY BI 2-VIEW BREAST INC CAD Maryanne Bishop APRN.ASSEMBLY MACHINE OFFBEARER [address] [place] [address] [facility] [address] [place] [address] Referral ID Status Reason Start Date Expiration Date Visits Requested Visits Authorized [id number] Pending Review Auto-Generat ed Referral 11/15/2022 12/15/2023 1 1 T [facility] for referral (narrative)* Diagnostic Procedure Only (Routine) - Closed Specialty Diagnoses / Procedures Referred By Lencho long Referred To Contact [facility] Diagnoses Encounter for screening mammogram for malignant neoplasm of breast Procedures GERRI SCREENING SCREENING MAMMOGRAPHY BI 2-VIEW BREAST INC Maryanne Grace APRN.ASSEMBLY MACHINE OFFBEARER [address] [place] [address] [facility] [address] [place] [address] Referral ID Status Reason Start Date Expiration Date V isits Requested Visits Authorized [id number] Closed Auto-Generate d Referral 05/11/2022 06/10/2023 1 1 T [facility] for visit Narrative* Diagnostic Procedure Only (Routine) - Closed Specialty Diagnoses / Procedures Referred By Lencho long Referred To Contact [facility] Diagnoses Encounter for screening mammogram for malignant neoplasm of breast Procedures GERRI SCREENING SCREENING MAMMOGRAPHY BI 2-VIEW BREAST INC CAD Maryanne Bishop APRN.ASSEMBLY MACHINE OFFBEARER [address] [place] [address] [facility] [address] [place] [address] Referral ID Status Reason Start Date Expiration Date V isits Requested Visits Authorized [id number] Closed Auto-Generate d Referral 05/11/2022 06/10/2023 1 1 [facility] Summary Purpose Family History No Family History Records Found Advance Directives No Advanced Directives Records Found Additional Source Comments Source Comments (unrecognize d section and content) In the event this informatio n is protected by the Federal Confidentiality of Alcohol and Drug Abuse Patient Records regulations: The Federal rules restrict any use of the information to criminally investigate or prosecute any alcohol or drug abuse patient.[facility] the event this information is protected by the Federal Confidentiality of Alcohol and Drug Abuse Patient Records regulations: The Federal rules restrict any use of the information to criminally investigate or prosecute any alcohol or drug abuse patient.[facility] Reason for Visit (unrecogniz ed section and content) Care Teams (unrecognized sec tion and content) Middleware Developer Relationship Specialty Start Date End Date Nathalie Parisi MD [address] [place] [address] PCP - General Family Medicine 11/15/22 INFORMATION SOURCE (unrecogn ized section and content) FOR RECORDS PERTAINING TO PATIENTS WHO ARE OR HAVE BEEN ENROLLED IN A CHEMICAL DEPENDENCY/SUBSTANCEABUSE PROGRAM, SOME INFORMATION MAY BE OMITTED. This clinical summary was aggregated from multiple sources. Caution should be exercised in using it in the provision of clinical care. This summary normalizes information from multiple sources, and as a consequence, information in this document may materially change the coding, format and clinical context of patient data. In addition, data may be omitted in some cases. CLINICAL DECISIONS SHOULD BE BASED ON THE PRIMARY CLINICAL RECORDS. [facility]. provides no warranty or guarantee of the accuracy or completeness of information in this document.
[2023-09-10 10:56] LABS: Absolute Neutrophil Count 3.5 X10^3/uL (2.0-7.7); Basophil# 0.04 X10^3/uL; Basophil% 0.7 % (0-1); Eosinophil# 0.07 X10^3/uL; Eosinophils% 1.2 % (0-5); Hematocrit 43.2 % (37-47); Hemoglobin 13.9 g/dL (12.0-15.0); Mean Corp Hgb Conc 32.2 g/dL (32-36); Mean Corpuscular Hgb 27.2 pg (27.0-32.0); Mean Corpuscular Volume 84.5 fL (81-99); Mean Platelet Vol. 10.4 fl (6.2-12.0); Monocyte# 0.52 X10^3/uL; Monocyte% 9.1 % (0-10); NRBC Flagged by Analyzer 0 % (0-5); Neutrophil # 3.47 X10^3/uL (2.7-7.7); Neutrophil % 60.7 % (47-70); Platelet Count 279 K/mm3 (150-450); RBC Distribution Width CV 12.8 % (11.6-14.6); RBC Distribution Width SD 39.3 fl (35.1-43.9); Red Blood Count 5.11 M/mm3 (4.2-5.4); White Blood Count 5.7 K/mm3 (4.4-11.0)
[2023-09-10 11:17] LABS: Anion Gap 3 (5-15); BUN 7 mg/dL (7-18); Calcium,Total 9.3 mg/dL (8.5-10.1); Chloride 111 mmol/L (98-107); Creatinine, Serum 0.87 mg/dL (0.55-1.02); EST Glomerular Filtration Rate 75 mL/min (>60); Est Glom Filt Rate - Afr Amer 90 mL/min (>60); Glucose 99 mg/dL (74-106); Potassium 3.9 mmol/L (3.5-5.1); Sodium Level 140 mmol/L (136-145); Troponin-I HS 3 pg/mL (3.0-54.0)
[2023-09-10 11:20] VITALS: BP 156/84; PULSE 80; RESP 16; O2SAT 99
[2023-09-10 12:26] VITALS: BP 138/66; PULSE 73; RESP 16; O2SAT 99
== END 2023-09-10 12:27 | disposition home or self-care (01) ==
PROVIDERS: Emergency Provider Emergency Medicine; PCP Family Medicine; Visit Provider Emergency Medicine
DX: M79.605 Pain in left leg (principal); R07.9 Chest pain, unspecified; Z87.891 Personal history of nicotine dependence; E66.9 Obesity, unspecified
CPT/HCPCS: 71046; 80048; 84484; 85025; 93005; 93971; 99283; A4216

== ENCOUNTER → 2024-01-23 | Outpatient (CLI) | payer OTHER, SELFPAY ==
--- NOTE | 2024-01-23 11:36 | US_ITS ---
STUDY: SUPERFICIAL ULTRASOUND - LEFT POPLITEAL FOSSA. REASON FOR EXAM: Female, 43 years old. CYST TECHNIQUE: A superficial ultrasound was performed with real-time and static hoover-scale imaging. COMPARISON: None. FINDINGS: Sonographic imaging of the popliteal fossa was obtained in the axial and longitudinal planes. No sonographic abnormality is seen. US/Ext Non Vasc Limited/Soft Tiss IMPRESSION: No sonographic abnormality is seen. Electronically Signed: Ernie Sosa MD at 14:52 EDT ,
== END | disposition home or self-care (01) ==
PROVIDERS: PCP Family Medicine; Referring Provider Family Medicine; Visit Provider Family Medicine
DX: M71.20 Synovial cyst of popliteal space [Baker], unspecified knee (principal)
CPT/HCPCS: 76882

== ENCOUNTER → 2024-02-05 | Outpatient (CLI) | payer OTHER, SELFPAY ==
--- NOTE | 2024-02-05 17:06 | US_ITS ---
STUDY: SUPERFICIAL ULTRASOUND - CERVICAL REGION. REASON FOR EXAM: Female, 43 years old. Localized enlarged lymph nodes TECHNIQUE: A superficial ultrasound was performed with real-time and static hoover-scale imaging. COMPARISON: None. FINDINGS: Posterior aspect of the right-sided neck was examined with ultrasound. There is a 1.3 cm x 1.2 cm x 0.2 cm benign-appearing lymph node. US/Head/Neck Soft Tissue IMPRESSION: There is a 1.3 cm x 1.2 cm x 0.2 cm benign-appearing lymph node in the posterior right side of the neck. . Electronically Signed: Ernie Sosa MD at 13:41 EDT ,
== END | disposition home or self-care (01) ==
PROVIDERS: PCP Family Medicine; Referring Provider Family Medicine; Visit Provider Family Medicine
DX: R59.0 Localized enlarged lymph nodes (principal)
CPT/HCPCS: 76536

== ENCOUNTER 2024-06-06 11:49 | Day surgery (SDC) | payer OTHER, SELFPAY ==
[2024-06-06] VITALS (7 sets, daily range): BP systolic 118–141; BP diastolic 73–79; PULSE 66–90; RESP 14–18; TEMP 36.4–36.8; O2SAT 97–100; BMI 41.3
--- NOTE | 2024-06-06 12:11 | PCM.PRE.AN2 ---
ASA Classification* ASA Classification ASA Classification: 3 Assessment & Plan Anesthesia* Anesthesia Assessment Anesthesia Assessment: Discussed sedation and/or anesthesia options, risks, benefits, and alternatives with patient/parents/legal guardian/POA. Questions invited. The patient/parents/legal guardian/POA seems to understand and agrees to proceed with anesthesia plan. Reviewed the physical assessment, medical history, allergy history and patient home medications list prior to surgery/procedure/anesthetic and documented any changes. Performed airway and anesthesia risk assessments. Anesthesia Type Anesthesia Type: MAC (see written pre anesthesia record for full assessment) Anesthesia Focused Assessment* Airway Assessment Mouth opens: >3 cm Mallampati Score: III Focused Labs Anesthesia Preop lab: CBC WBC 6.1 K/mm3 (4.4-11.0) 09/19/23 09:02 RBC 5.00 M/mm3 (4.2-5.4) 09/19/23 09:02 Hgb 13.6 g/dL (12.0-15.0) 09/19/23 09:02 Hct 41.7 % (37-47) 09/19/23 09:02 Plt Count 280 K/mm3 (150-450) 09/19/23 09:02 CHEMISTRY Potassium 4.0 mmol/L (3.5-5.1) 09/19/23 09:02 Sodium 139 mmol/L (136-145) 09/19/23 09:02 Magnesium 2.2 mg/dL (1.6-2.6) 05/26/22 01:20 BUN 8 mg/dL (7-18) 09/19/23 09:02 Creatinine 0.89 mg/dL (0.55-1.02) 09/19/23 09:02 Glucose 98 mg/dL (74-106) 09/19/23 09:02 TSH 1.69 uIU/mL (0.358-3.74) 08/03/22 16:06 COAG Urine Test Negative Negative 04/28/23 08:22 Pre-Assessment Diagnosis/Proposed Procedure Planned Operative Procedure(s): Hysteroscopy D&C, polypectomy, Symphion, Mirena IUD insertion Anesthesia History 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 When Was Last Pacemaker Check QUESTION #4 FULL TEXT: You/Your Family Experience fever (hyperthermia) with Anesthesia Last Oral Intake Last Oral intake: Last Oral Intake NPO since Meds taken in AM with sips of water? 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 car construction Female Yes 05/27/24 09:06 HX of Motion Sickness No 05/27/24 09:06 HX of N/V After Surgery No 05/27/24 09:06 Non-Smoker Yes 05/27/24 09:06 Duration of Surgery greater Yes 05/27/24 09:06 than 60 minutes Number of Risk Factors 3 05/27/24 09:06 PONV Score Moderate Risk 05/27/24 09:06 Height & Weight Height & Weight: Anesthesia: Height & Weight Height 5 ft 6 in 09/10/23 10:21 Respiratory Assessment Respiratory Assessment - superintendent car construction: Respiratory Tract Infection Hx - superintendent car construction Hx Respiratory Tract Infection No 05/27/24 09:06 STOP Sleep Apnea STOP Sleep Apnea - superintendent car construction: STOP Sleep Apnea - superintendent car construction Hx Hypertension Yes: BORDERLINE 05/27/24 09:06 Hx Sleep Apnea No 05/27/24 09:06 CPAP BIPAP Do you snore loudly (louder No 05/27/24 09:06 than talking or can be heard Do you often feel tired/ No 05/27/24 09:06 fatigued/ sleepy during daytime? Has anyone observed you stop No 05/27/24 09:06 breathing during sleep? STOP Results Negative 05/27/24 09:06 QUESTION #5 FULL TEXT : Do you snore loudly (louder than talking or can be heard through closed doors)? 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 car construction Tobacco Use Smoking Status Former smoker 05/27/24 09:06 Hx Tobacco Use No 05/27/24 09:06 Years Smoking Packs Smoked per Day Smoking Cessation Date was No - quit smoking greater 05/27/24 09:06 within the last 15 years than 15 years ago Hx Smoking Cessation Date 08/14/00 05/27/24 09:06 Hx Smoking Cessation Counseling Hematologic Medial History Hematologic Hx - superintendent car construction: Hematologic Medical Hx - tobacco cutter Hx of Blood Transfusion No 05/27/24 09:06 Hx of Transfusion in last 3 No 05/27/24 09:06 Months Date of Last Transfusion (if within last 3 months) Ever experience any problems No 05/27/24 09:06 with transfusion(s)? Specify any problems Hx of Preganancy in last 3 No 05/27/24 09:06 Months Nurse Filling Out Transfusion VLEHMAN 05/27/24 09:06 & Questions: Date: 05/27/24 05/27/24 09:06 Time: 09:14 05/27/24 09:06 Patient unable to answer at this time (ie. confused, unrespo /Reproduction History /Reproductive History - superintendent car construction: /Reproductive Hx- superintendent car construction Hx Now No 05/27/24 09:06 Gestational Age (in weeks): EDC: Hx Hx Para Hx Section SAB No 09/10/23 10:21 Active Medications Active Medications: Current Medications Generic Name Dose Route Start Last Admin Trade Name Freq PRN Reason Stop Dose Admin Levonorgestrel 1 each 06/06/24 13:30 Levonorgestrel Iud (Liletta) INTRA-UTER 06/06/24 13:31 X1 [facility] Medical History Alcohol use Rash Low iron High cholesterol Hypertension History of stress test Wears glasses Depression Alcohol use Anemia Back pain Syncope History of IBS Gastric reflux Former smoker Shortness of breath on exertion History of edema Normal stress echocardiogram Panic GERD (gastroesophageal reflux disease) Home Medications ?Medication ?Instructions ?Recorded ?Last Taken ?Type bupropion HCl 150 mg 24 hr tablet, 150 mg PO DAILY 05/26/22 Unknown History extended release bupropion HCl 300 mg 24 hr tablet, 300 mg PO DAILY 05/26/22 Unknown History extended release pantoprazole 40 mg tablet,delayed 40 mg PO DAILY 05/26/22 Unknown History release multivitamin 1 tab PO DAILY 04/25/23 Unknown History loratadine 10 mg tablet 10 mg PO DAILY 05/27/24 Unknown History (Allerclear) Allergy/AdvReac Type Severity Reaction Status Date / Time omeprazole (From Prilosec) Allergy Rash Verified 05/27/24 09:04 Surgical History Hx of dilation and curettage History of laparoscopic cholecystectomy Social History household members: spouse current occupational status: employed Smoking Status: Former smoker Review of Systems (Anesthesia) ROS Narrative System reviewed and no additional complaints, except as documented.
[2024-06-06 12:20] LABS: Internal QC Validated? YES +Cl - CLEAR BKGD; Pregnancy, Urine Negative Negative
[2024-06-06 12:34] LABS: Hematocrit 39.7 % (37-47); Hemoglobin 13.4 g/dL (12.0-15.0); Mean Corp Hgb Conc 33.8 g/dL (32-36); Mean Corpuscular Hgb 27.4 pg (27.0-32.0); Mean Corpuscular Volume 81.2 fL (81-99); Mean Platelet Vol. 10.5 fl (6.2-12.0); Platelet Count 288 K/mm3 (150-450); RBC Distribution Width CV 13.2 % (11.6-14.6); RBC Distribution Width SD 38.5 fl (35.1-43.9); Red Blood Count 4.89 M/mm3 (4.2-5.4); White Blood Count 5.7 K/mm3 (4.4-11.0)
--- NOTE | 2024-06-06 13:30 | ECC_PTH ---
PATHOLOGY RESULTS PATIENT: BOSTON NETTLES LOC: [facility] [place] U#:[id number] AGE/SX: 44/F ROOM: RE06/06/[address]: Dr. Shirley Nam DO : 1980 BED: DIS: 06/06/2024 SPEC #: [id number] RECD: 06/06/24 18:09 STATUS: ERNESTO TG #: [id number] SAVI: 06/06/24 13:[address]: Shirley Nam DEPT: SURGICAL PATHOLOGY RECD BY: Emily Merritt ENTERED: 06/07/24 07:45 SP TYPE: ECC OTHR DR: Dr. Nathalie Theodore MD Tissues: Endocervical Endocervical Procedures: Surgery Specimen Level IV HEADER OPERATION: Hysteroscopy, D&C, polypectomy PRE-OP DIAGNOSIS: Dysfunctional uterine bleeding, polyp TISSUE SUBMITTED: A- Endocervical polyp, B- Endocervical curettings MICROSCOPIC DIAGNOSIS A. Endocervical polyp, polypectomy: Inflamed benign endocervical polyp. B. Endocervical curettings: Secretory endometrium. 06/10/2024 MICROSCOPIC DESCRIPTION Slides are reviewed. GROSS DESCRIPTION A. Received in fixative is one container labeled with the patient's name and designated Endocervical polyp. The specimen consists of a single fragment of dark-juárez soft tissue measuring 1.4 x 1.0 x 0.6cm. The specimen is totally submitted in one cassette. B. Received in fixative is one container labeled with the patient's name and designated Endometrial curettings. The specimen consists of multiple irregular fragments of reddish-juárez soft tissue measuring in aggregate 3.0 x 1.5 x 0.2cm. The specimen is totally submitted in one cassette. 06/07/2024 TC:5 CPT:83415y7
[2024-06-06] MEDS: Levonorgestrel IUD (Liletta) 1 EACH INTRA-UTER (14:30)
[2024-06-06] MEDS: Lidocaine 1% /Epi 1:100 (20ml) 20 ML Vial (14:31)
--- NOTE | 2024-06-06 14:45 | PCM.DC ---
Discharge Instructions Diet Discharge Diet: No restrictions Activity Discharge Activity: May Drive (once you are more than 24 hours out from surgery) and May Shower (once you are more than 24 hours out from surgery) May resume sexual activity in: 1 week (nothing in the vagina and no soaking in water for 1 week) Ice area for (Minutes): 15 Weight Bearing Status: Weight bearing as tolerated Lifting Restrictions: none Dressing / Incision Call your doctor if you observe: Fever of 101 or Higher, Coldness, Increased Pain, Numbness or Tingling, Change in Color, Inability to urinate, Inability to have a bowel movement, Using more than 1 pad per hour, Shortness of breath, Dizziness, Fainting spells, Swelling in the ankles, Chest pain, Prolonged hiccupping, Increased palpitations (irregular heartbeat), Calf discomfort and Uncontrolled pain Cleanse incision/area with: Soap & Water Follow Up Care Please Follow Up With: Shirley Nam DO When: 1-2 weeks post op Test Results: Test results from this visit will be discussed in further detail at your follow-up appointment, if applicable. Discharge Plan Admission Primary Reason for Your Visit: surgery Attending Provider: Shirley Nam Primary Care Provider: Nathalie Theodore Instructions Print Language: Russian Discharge Orders/Prescriptions Prescriptions: Continued pantoprazole 40 mg tablet,delayed release (DR/EC) 40 mg PO DAILY bupropion HCl 300 mg tablet extended release 24 hr 300 mg PO DAILY bupropion HCl 150 mg tablet extended release 24 hr 150 mg PO DAILY multivitamin Tablet 1 tab PO DAILY loratadine [Allerclear] 10 mg tablet 10 mg PO DAILY Referrals / Follow Up: Nathalie Theodore MD [Primary Care Provider] - Disposition Disposition (needs filled in before D/C Order can be placed): Home, Self Care
--- NOTE | 2024-06-06 14:47 | OP.PCM_ITS ---
Problems Associated Problem List Diagnoses (1) Cervical polyp: (2) DUB (dysfunctional uterine bleeding): Operative Report (Standard) Operative Information Surgery/Procedure Performed: Hysteroscopy, D&C, cervical polypectomy, Liletta IUD insertion Surgeon: Shirley Nam Date of Procedure: 06/06/24 Procedure Start Time: 14:27 Procedure Stop Time: 14:41 Pre-Operative Diagnosis: Cervical polyp, DUB Post-Operative Diagnosis: As above Select all DRAINS/GRAFTS/IMPLANTS that apply: None Type of Anesthesia: MAC Special Medications: None Estimated Blood Loss: < 20 Fluids Replaced: See anesthesia record Specimen collected: Yes Description of specimen(s) removed: Endocervical polyp Endometrial curettings Description of surgery: The patient was taken to the operating room were MAC anesthesia was induced and found to be adequate. She was prepped and draped in the dorsal lithotomy position using yellowfin stirrups. A weighted speculum was placed in the vagina to expose the cervix. The anterior lip of the cervix was grasped with single- tooth tenaculum. The endocervical polyp was grasped with a ring forcep and twisted. The polyp was removed completely and sent to pathology for further review. The hysteroscope was then advanced to the fundus of the uterus and distended with normal saline as distention media. 100 cc of normal saline was used for the procedure. Bilateral tubal ostia were visualized. The uterine lining was normal-appearing. No polyps or fibroids were noted. No lesions appreciated within the uterus. The hysteroscope was slowly removed through the endocervical canal and no lesions were noted in the endocervical canal. Pictures were taken. The hysteroscope was then removed. A sharp curettage was performed for a moderate amount of tissue. The endometrial curettings were sent to pathology for review. The uterus sounded to 10-1/2 cm in length. The Liletta IUD was inserted in usual fashion at the fundus of the uterus. The IUD strings were trimmed to 2 cm in length. Bleeding was hemostatic. All instruments were removed from the vagina. A vaginal sweep was performed. Instrument sponge counts were correct. The patient was taken to the room in stable condition. 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
--- NOTE | 2024-06-06 14:53 | PCM.POST.ANE ---
Anesthesia: Postop Eval I Current Vital Signs Temperature: 97.6 F Pulse Rate: 80 Blood Pressure: 123/79 Respiratory Rate: 14 Pulse Ox: 97 Assessment Airway patent: Yes Spontaneous unlabored respirations: Yes nausea: No Vomiting: No Anesthesia Complication: No Fluid Hydration Crystalloid volume administer (ml): 10 Total IV fluid infused: 10 Progress Note Anesthesia document: Postop Eval 1 completed: Yes
--- NOTE | 2024-06-06 14:55 | PCM.POSTANE2 ---
Anesthesia Postop Eval I Sum Postop Eval Completion status Anesthesia document: Postop Eval 1 completed: Yes Anesthesia Postop Eval I Summary Anesthesia Postop Eval I Summary: Anesthesia Postop Eval I: Assessment Summary Airway patent Yes 06/06/24 14:54 Spontaneous unlabored Yes 06/06/24 14:54 respirations Mental status nausea No 06/06/24 14:54 Vomiting No 06/06/24 14:54 Anesthesia Postop Eval I: Fluid Summary Crystalloid volume administer 10 06/06/24 14:54 (ml) Colloids volume administered ( ml) Blood Product volume administered (ml) Total IV fluid infused 10 06/06/24 14:54 Anesthesia Postop Eval I: Summary Notes Anesthesia Complication No 06/06/24 14:54 Anesthesia Complication Comment: Post-operative progress note Anesthesia: Postop Eval II Evaluation Mental status: Awake Pain Level: 0 nausea: No Vomiting: No
== END 2024-06-06 15:58 | disposition home or self-care (01) ==
LOC: SDC 11:49 → AC 11:52
PROVIDERS: Anesthesiology; PCP Family Medicine; Referring Provider Obstetrics & Gynecology; Visit Provider Obstetrics & Gynecology
PROC: 0UB98ZZ Excision of Uterus, Via Natural or Artificial Opening Endoscopic (ICD-10-PCS; CPT 58558; principal; 2024-06-06 13:15)
DX: N84.1 Polyp of cervix uteri (principal); Z68.41 Body mass index [BMI] 40.0-44.9, adult; N93.8 Other specified abnormal uterine and vaginal bleeding; Z30.430 Encounter for insertion of intrauterine contraceptive device; K21.9 Gastro-esophageal reflux disease without esophagitis; E66.9 Obesity, unspecified; F32.9 Major depressive disorder, single episode, unspecified; Z87.19 Personal history of other diseases of the digestive system; Z90.49 Acquired absence of other specified parts of digestive tract; Z87.891 Personal history of nicotine dependence; Z79.899 Other long term (current) drug therapy
CPT/HCPCS: 58558; 58300; 00952; 81025; 85027; 86850; 86900; 86901; 88305; J2405

== ENCOUNTER → 2024-12-10 | Outpatient (CLI) | payer OTHER, SELFPAY ==
--- NOTE | 2024-12-10 17:57 | CT_ITS ---
PROCEDURE: SOFT TISSUE NECK WITH CONTRAST 12/10/2024 REASON FOR EXAM: LOCALIZED SWELLING, MASS. TECHNIQUE: CT of the soft tissues of the neck from the orbits to the upper mediastinum with intravenous contrast. One or more dose reduction techniques were used (e.g., Automated exposure control, adjustment of the mA and/or kV according to patient size, use of iterative reconstruction technique). RADIATION DOSE SUMMARY: 1 FINDINGS: Airway: Midline and patent. Salivary glands: Unremarkable. Lymph nodes: No cervical lymphadenopathy. Thyroid: Unremarkable. Vasculature: Carotid arteries and internal jugular veins are unremarkable. Orbits: Unremarkable at visualized levels. Paranasal sinuses and mastoids: Grossly clear at visualized levels. Lung apices: Clear. Upper mediastinum: Visualized mediastinum is unremarkable. Bones: Multilevel degenerative changes of the spine. Other: CT/Soft Tissue Neck WITH Contrast IMPRESSION: NORMAL CONTRAST-ENHANCED CT OF THE SOFT TISSUES OF THE NECK. Reading Location: [id number]
== END | disposition home or self-care (01) ==
PROVIDERS: PCP Family Medicine; Referring Provider Otolaryngology; Visit Provider Otolaryngology
DX: R22.1 Localized swelling, mass and lump, neck (principal)
CPT/HCPCS: 70491; Q9967

== ENCOUNTER → 2025-02-07 | Outpatient (CLI) | payer OTHER, SELFPAY ==
--- NOTE | 2025-02-07 15:00 | CT_ITS ---
PROCEDURE: LIMITED CHEST CT CARDIAC ONLY 02/07/2025 REASON FOR EXAM: CP, HTN TECHNIQUE: CT for coronary artery calcium scoring. One or more dose reduction techniques were used (e.g., Automated exposure control, adjustment of the mA and/or kV according to patient size, use of iterative reconstruction technique). RADIATION DOSE SUMMARY: CTDlvol: 12.19 mGy DLP: 243.79 mGycm COMPARISON: None. CT/Limited Chest CT Cardiac Only IMPRESSION: Limited imaging of the lungs demonstrates no acute process. No pleural effusion or pneumothorax is seen in visualized areas. No adenopathy is noted. The visualized upper abdomen demonstrates no significant abnormality. Reading Location: [place] [address]
--- NOTE | 2025-02-11 17:01 | CA.SCORE ---
Calcium Scoring Date of Study:: 02/07/25 Indications Indications: CP Coronary Calcium Scoring: High-resolution Computed Tomographic imaging of the chest was performed on [02/07/25 ], with particular attention paid to the coronary arteries. Images from the examination were analyzed for the presence and extent of coronary artery calcification , using coronary calcium quantification software. The patient tolerated the procedure well and there were no complications. The results of the coronary calcification analysis are provided below. Findings Coronary Artery Left Main (LM): 0 Left Anterior Descending (LAD): 0 Left Circumflex (LCX): 0 Right Coronary Artery (RCA): 0 Total Agatston Score: 0 Percentile Rankin% Calcium Scoring Interpretation: Different methods to categorize the overall amount of coronary plaque. Overall amount CAC SIS Visual of coronary plaque P1 Mild -100 <2 1-2 vessels with mild amount of plaque P2 Moderate 101-300 3-4 1-2 vessels with moderate amount, 3 vessels with mild amount of plaque P3 Severe 301-999 5-7 3 vessels with moderate amount, 1 vessel with severe amount of plaque P4 Extensive >1000 >8 2-3 vessels with severe amount of plaque Conclusion: No atherosclerotic plaque
== END | disposition home or self-care (01) ==
PROVIDERS: PCP Family Medicine; Referring Provider Family Medicine; Visit Provider Family Medicine
DX: R07.9 Chest pain, unspecified (principal); I10 Essential (primary) hypertension
CPT/HCPCS: 75571; 76380